=== PATIENT | male | born 1960 | race Two or more races ===

== ENCOUNTER 2021-04-11 17:03 | Inpatient (IN) | payer MEDICARE, OTHER ==
[~2021-04-11] VITALS: Ht 172.7 cm; Wt 70.3 kg
--- NOTE | 2021-04-11 21:30 | NUR ---
[employer]PS[employer] ADMISSION NOTES: 60 YEAR OLD MALE ADMITTED ON A 5150 HOLD FOR GD. PT. A/O X3. PT. ORIENTED TO UNIT POLICY, PROTOCOLS AND PROCEDURES. PT. BELONGINGS LOGGED AND LOCKED IN CABINET ALONG WITH CONTRABANDS. SAFETY ENVIRONMENT OBSERVED. NO DISTRESS OR AGITATION NOTED AT THIS TIME. MEDICAL AND PSYCH MADE AWARE OF PT. ADMISSION TO UNIT.
[2021-04-11 22:03] VITALS: BP 132/96
[2021-04-11] MEDS ORDERED: BLOOD SUGAR DIAGNOSTIC 1 EACH STRIP IN ONE (22:30)
[2021-04-11] MEDS ORDERED: MAG HYDROX/AL HYDROX/SIMETH 30 ML UDC PO PRN (22:30)
[2021-04-11] MEDS ORDERED: clonazePAM 0.5 MG TABLET PO PRN (22:30)
[2021-04-11] MEDS ORDERED: MAGNESIUM HYDROXIDE 30 ML UDC PO PRN (22:30)
[2021-04-11] MEDS ORDERED: ACETAMINOPHEN 325 MG TABLET PO PRN (22:30)
[2021-04-11] MEDS ORDERED: TEMAZEPAM 7.5 MG CAPSULE PO PRN (22:30)
--- NOTE | 2021-04-11 23:34 | NUR ---
RN NOTE PATIENT DID NOT PROVIDE ANY INFORMATION ABOUT HOME MEDS, PER PATIENT," I TAKE PAIN MEDICINE FOR SCOLIOSIS BUT I DON'T REMEMBER THE NAME OF THAT MEDICATION." THERE IS NO OTHER HOME MEDICATION HISTORY PROVIDED BY THE PATIENT AT THIS TIME.
--- NOTE | 2021-04-12 00:02 | NUR ---
RN NOTE: DR. CANA[place] WAS NOTIFIED ABOUT PATIENT'S ADMISSION AT [facility] UNIT.
--- NOTE | 2021-04-12 06:22 | NUR ---
RN NOTE PATIENT REFUSED AM LABS DESPITE OF RISKS & BENEFITS EXPLANATIONS.
--- NOTE | 2021-04-12 06:35 | NUR ---
RN NOTE PATIENT REFUSED MRSA SWAB TO BE COLLECTED DESPITE OF RISKS & BENEFITS EXPLANATIONS.
[2021-04-12 08:00] VITALS: BP 111/68
--- NOTE | 2021-04-12 08:00 | NUR ---
RN NOTE PATIENT CONTINUES TO REFUSE MORNING LABS STATING HE WANTS TO SPEAK WITH THE MD REGARDING REASONS WHY. EXPLAINED RISK AND BENEFITS STILL REFUSED
[2021-04-12] MEDS: NICOTINE PATCH (14MG) 14 MG PATCH.TD24 TD SCH (08:14)
[2021-04-12 09:07] LABS: ALBUMIN 3.4 g/dL (3.4-5.0); BILIRUBIN,TOTAL 0.4 mg/dL (0.2-1.0); CALCIUM, SERUM 8.8 mg/dL (8.5-10.1); CREATININE 1.5 mg/dL (0.6-1.3); POTASSIUM 3.8 mmol/L (3.5-5.1); TOTAL PROTEIN, SERUM 6.5 g/dL (6.4-8.2)
[2021-04-12] MEDS ORDERED: OLANZAPINE 2.5 MG TABLET PO SCH (13:30)
[2021-04-12] MEDS: QUETIAPINE FUMARATE 100 MG TABLET PO SCH ×2 (14:24→16:00)
[2021-04-12] MEDS: BUPROPION XL 150 MG TAB.ER.24 PO SCH (14:24)
[2021-04-12 16:00] VITALS: BP 139/82
[2021-04-12 20:55] VITALS: BP 97/57
--- NOTE | 2021-04-13 06:17 | NUR ---
RN notes, Alert and oriented, ambulatory. Stayed in bed all night. No night meds given. No significant change of condition. Kept clean and dry.
[2021-04-13] MEDS: BUPROPION XL 150 MG TAB.ER.24 PO SCH (07:43)
[2021-04-13] MEDS: NICOTINE PATCH (14MG) 14 MG PATCH.TD24 TD SCH (07:43)
[2021-04-13] MEDS: QUETIAPINE FUMARATE 100 MG TABLET PO SCH ×2 (07:43→16:56)
[2021-04-13 08:00] VITALS: BP 106/67
--- NOTE | 2021-04-13 15:52 | NUR ---
Initial D/C Plan: Pt. states he is experiencing homelessness. Pt. states he would like low income housing and has applied for [employer] voucher. SW discussed placement and pt. is open to placement. SW will continue to collaborate with psychiatrist to make safe & proper d/c plan.
--- NOTE | 2021-04-13 15:52 | NUR ---
Point of Contact: Pt. gave SW verbal consent to speak to his sister Brittany [phone]. SW spoke to Brittany to gather collateral information. Brittany stated concern for pt. safety due to pt. paranoia. SW validated her concerns and informed her pt. would be discharged when he has been cleared by psychiatrist. Family expressed understanding.
[2021-04-13 16:00] VITALS: BP 123/79
[2021-04-13 20:47] VITALS: BP 110/62
[2021-04-14 08:00] VITALS: BP 122/83
[2021-04-14] MEDS: BUPROPION XL 150 MG TAB.ER.24 PO SCH (08:59)
[2021-04-14] MEDS: QUETIAPINE FUMARATE 100 MG TABLET PO SCH ×2 (08:59→16:43)
[2021-04-14] MEDS: NICOTINE PATCH (14MG) 14 MG PATCH.TD24 TD SCH (09:00)
[2021-04-14 16:00] VITALS: BP 103/67
[2021-04-14 20:08] VITALS: BP 119/69
[2021-04-15 08:00] VITALS: BP 100/66
[2021-04-15] MEDS: NICOTINE PATCH (14MG) 14 MG PATCH.TD24 TD SCH (08:11)
[2021-04-15] MEDS: BUPROPION XL 150 MG TAB.ER.24 PO SCH (08:11)
[2021-04-15] MEDS: QUETIAPINE FUMARATE 100 MG TABLET PO SCH ×2 (08:11→17:42)
[2021-04-15 16:00] VITALS: BP 115/66
[2021-04-15 20:31] VITALS: BP 133/79
--- NOTE | 2021-04-15 22:00 | NUR ---
RN NOTES: PT. REFUSED WEEKLY SKIN ASSESSMENT AND PICTURES TAKEN, ENCOURAGED X 3, RISKS AND BENEFITS EXPLINED .PT. STILL REFUSED ,PER PT. MY SKIN IS FINE.
[2021-04-16 08:00] VITALS: BP 133/58
[2021-04-16] MEDS: QUETIAPINE FUMARATE 100 MG TABLET PO SCH ×2 (08:27→16:44)
[2021-04-16] MEDS: NICOTINE PATCH (14MG) 14 MG PATCH.TD24 TD SCH (08:27)
[2021-04-16] MEDS: BUPROPION XL 150 MG TAB.ER.24 PO SCH (08:27)
[2021-04-16 15:19] LABS: BASOPHILS # (AUTO) 0.1 K/uL (0.0-0.2); BASOPHILS % (AUTO) 1.5 % (0.0-2.0); EOSINOPHILS % (AUTO) 1.6 % (0.0-6.0); HEMATOCRIT 44 % (39-51); HEMOGLOBIN 14.5 g/dL (13.5-17.5); LYMPHOCYTES # (AUTO) 2.1 K/uL (0.8-4.8); LYMPHOCYTES % (AUTO) 35.5 % (20.0-44.0); MEAN CORPUSCULAR HGB CONC 33 g/dl (31.0-36.0); MEAN CORPUSCULAR VOLUME 100 fL (80-96); MONOCYTES # (AUTO) 0.6 K/uL (0.1-1.30); NEUTROPHILS % (AUTO) 51.4 % (43.0-81.0); PLATELET COUNT (AUTO) 224 K/uL (150-450); RED BLOOD CELL COUNT(AUTO) 4.44 MIL/uL (4.5-6.0); WHITE BLOOD COUNT (AUTO) 5.9 K/uL (4.3-11.0)
[2021-04-16 15:34] LABS: CALCIUM, SERUM 9.6 mg/dL (8.5-10.1); CREATININE 1.4 mg/dL (0.6-1.3); MAGNESIUM 2.7 mg/dL (1.8-2.4); PHOSPHORUS 4.4 mg/dL (2.5-4.9); POTASSIUM 4.8 mmol/L (3.5-5.1)
[2021-04-16 16:00] VITALS: BP 137/84
[2021-04-16 20:00] VITALS: BP 116/70
[2021-04-16 20:07] VITALS: BP 116/70
--- NOTE | 2021-04-17 06:53 | NUR ---
RN NOTE PATIENT SLEPT WELL AT NIGHT, NO BEHAVIOR EPISODE NOTED THROUGH OUT THE SHIFT. WILL ENDORSE TO AM RN FOR CONTINUITY OF CARE.
[2021-04-17 08:00] VITALS: BP 140/90
[2021-04-17] MEDS: NICOTINE PATCH (14MG) 14 MG PATCH.TD24 TD SCH (09:03)
[2021-04-17] MEDS: BUPROPION XL 150 MG TAB.ER.24 PO SCH (09:03)
[2021-04-17] MEDS: QUETIAPINE FUMARATE 100 MG TABLET PO SCH ×2 (09:03→17:27)
--- NOTE | 2021-04-17 15:05 | NUR ---
Probable Cause Hearing Pt's 5250 hold was upheld for grave disability.
[2021-04-17 16:00] VITALS: BP 106/72
[2021-04-17 20:00] VITALS: BP 104/67
--- NOTE | 2021-04-18 07:36 | NUR ---
RN NOTE URINE SPECIMEN COLLECTED & WAITING FOR THE LAB TO PICK IT. ENDORSED TO AM RN.
[2021-04-18 08:00] VITALS: BP 133/84
[2021-04-18] MEDS: BUPROPION XL 150 MG TAB.ER.24 PO SCH (08:27)
[2021-04-18] MEDS: NICOTINE PATCH (14MG) 14 MG PATCH.TD24 TD SCH (08:27)
[2021-04-18] MEDS: QUETIAPINE FUMARATE 100 MG TABLET PO SCH ×2 (08:28→16:36)
[2021-04-18 13:59] LABS: BILIRUBIN,URINE NEGATIVE (NEGATIVE); COLOR,URINE STRAW (YELLOW); LEUKOCYTE ESTERASE ,URINE NEGATIVE (NEGATIVE); NITRITE, URINE NEGATIVE (NEGATIVE); PROTEIN,URINE NEGATIVE (NEGATIVE); UGLUCOSE NEGATIVE (NEGATIVE); UROBILINOGEN,URINE 0.2 EU/dL (0.2)
[2021-04-18 16:00] VITALS: BP 124/72
[2021-04-18 19:55] VITALS: BP 108/68
[2021-04-19 03:54] LABS: CREATININE, URINE 46.7 MG/DL (30.0-125.0)
[2021-04-19 08:00] VITALS: BP 113/68
[2021-04-19] MEDS: NICOTINE PATCH (14MG) 14 MG PATCH.TD24 TD SCH (08:18)
[2021-04-19] MEDS: BUPROPION XL 150 MG TAB.ER.24 PO SCH (08:18)
[2021-04-19] MEDS ORDERED: QUETIAPINE FUMARATE 100 MG TABLET PO SCH (09:00)
--- NOTE | 2021-04-19 13:25 | NUR ---
D/C Planning SW contacted pt's sister, Brittany [phone], to discuss D/C plans. Brittany stated that she is able to provide transportation for the pt at the time of D/C. Pt plans to return to his prior living arrangement at home.
[2021-04-19 16:00] VITALS: BP 116/77
[2021-04-19] MEDS: QUETIAPINE FUMARATE 100 MG TABLET PO SCH (16:20)
--- NOTE | 2021-04-19 19:30 | NUR ---
GPS RN NOTE, RECEIVED PATIENT AWAKE AND IN BED, NO S/S OR COMPLAINTS OF PAIN AT THIS TIME. PATIENT IS DISPLAYING NO S/S OF APPARENT DISTRESS AT THIS TIME. PATIENT BREATHING IS UNLABORED WITH EQUAL RISE AND FALL OF THE CHEST. PATIENT IS ALERT AND ORIENTED X 3 ON ROOM AIR WITH A SPO2 99%. PATIENT IS COMPLIANT WITH MEDICATIONS, VISIBLE ON THE UNIT, CALM, AND COOPERATIVE. PATIENT DENIES SUICIDAL AND HOMICIDAL IDEATIONS AT TIME. PATIENT EDUCATED ON THE USE OF THE CALL BATISTA. PATIENT BED SIDE RAILS UP X 2 FOR SAFETY. PATIENT BED IS LOCKED, LOW, WITH BED ALARM ON. WILL CONTINUE TO MONITOR THIS PATIENT Q15 MINUTES WITH THE HELP OF STAFF TO MAINTAIN SAFETY.
[2021-04-19 20:00] VITALS: BP 113/56
[2021-04-20 08:00] VITALS: BP 119/67
[2021-04-20] MEDS: BUPROPION XL 150 MG TAB.ER.24 PO SCH (08:36)
[2021-04-20] MEDS: NICOTINE PATCH (14MG) 14 MG PATCH.TD24 TD SCH (08:36)
[2021-04-20] MEDS: QUETIAPINE FUMARATE 100 MG TABLET PO SCH (08:36)
--- NOTE | 2021-04-20 09:52 | NUR ---
Dr. Gilmore gave an order to D/C hold and D/C home and to follow up with psych and medical doctors. Pt. is for discharge with prescriptions. Pt. without distress, denies suicidal and homicidal. Discharge papers ready and belongings ready and will continue to monitor for safety.
--- NOTE | 2021-04-20 13:00 | NUR ---
Pt. left the unit with belongings escorted by staff to the lobby. Left without distress and ambulatory. V/S taken :BP 136/81, MO 87, RR 18, temp 98.0, oxygen sat 95%. Pt. was instructed on meds to continue at home and verbalizes understanding and advised to make a follow up with psych and medical doctors and agreed. Pt. was being picked up by her sister in the lobby.
--- NOTE | 2021-04-20 14:57 | NUR ---
D/C Note: Pt. was discharged with his sister, Brittany ([phone]) and was provided transportation by her at 1 PM. Pt will return to his private residence located at [address] [place] [id number]. Pt.s sister was informed and made aware of this discharge. Upon discharge, the pt. appeared to be in a euthymic mood with an anxious affect. Pt. appears to be oriented x4. Pt. denied both suicidal and homicidal ideation as well as auditory and visual hallucinations. Pt. will be under the care of psychiatrist, Dr. Sebastien Treadwell located at [address] [place] [address]; and has phone conference apt.on 04/25/2021 9:30 am. Pt. will be under the care of PCP: Dr. Michelle Ocampo located at [address] [place] [address]; and pt. to follow up with apt.
== END 2021-04-20 13:00 | disposition home or self-care (01) | DRG 885 ==
LOC: GPS 20:57
PROVIDERS: ADMIT Psychiatry & Neurology Psychiatry; ATTEND Nurse Practitioner Family
DX: F33.3 Major depressive disorder, recurrent, severe with psychotic symptoms (principal); N17.0 Acute kidney failure with tubular necrosis; F29 Unspecified psychosis not due to a substance or known physiological condition; F41.9 Anxiety disorder, unspecified; Z73.6 Limitation of activities due to disability; I10 Essential (primary) hypertension; R73.9 Hyperglycemia, unspecified; M41.9 Scoliosis, unspecified; N13.9 Obstructive and reflux uropathy, unspecified
CPT/HCPCS: 36415; 80048-TC; 80053-TC; 80061-TC; 82570-TC; 83735-TC; 84100-TC; 84300-TC; 85025-TC; 97112-TC; 97116-TC; 97530-TC